=== PATIENT | female | born 1985 | race Caucasian/White ===

== ENCOUNTER 2016-06-27 10:07 | Day surgery (SDC) | payer OTHER ==
--- NOTE | ~2016-06-27 | EGD ---
EGD REPORT [facility] [address] [place] [address] NAME: NANCY SCHULTZ : [birth year] STATUS : REG [facility]#: [id number] AGE: 31 ADM/REG DATE : 06/27/16 MR#: [id number] REPORT SERV DATE: 06/27/16 DICTATED BY: LUKE ALDANA DATE: 06/27/16 REPORT STATUS : Draft TRANSCRIBED BY: [facility] DATE: 06/27/16 Pulmonology Patient Name: Nancy Schultz Procedure Date: 06/27/2016 3:16 PM Date of : 1985 Attending MD: JESSICA ALDANA MD Procedure Date No Time: 06/27/2016 Procedure: Bronchoscopy Indications: KAMILAH and LLL infiltrates. Providers: JESSICA ALDANA MD Referring MD: NORIS ROMAN MD Medicines: Lidocaine 2% 20 mL Complications: No immediate complications Procedure: Pre-Anesthesia Assessment: - A History and Physical has been performed. Patient meds and allergies have been reviewed. The risks and benefits of the procedure and the sedation options and risks were discussed with the patient. All questions were answered and informed consent was obtained. Patient identification and proposed procedure were verified prior to the procedure by the physician and the nurse in the pre-procedure area in the procedure room. Mental Status Examination: alert and oriented. Airway Examination: normal oropharyngeal airway. Respiratory Examination: poor air movement. CV Examination: normal and RRR, no murmurs, no S3 or S4. ASA Grade Assessment: III - A patient with severe systemic disease. After reviewing the risks and benefits, the patient was deemed in satisfactory condition to undergo the procedure. The anesthesia plan was to use general anesthesia. Immediately prior to administration of medications, the patient was re-assessed for adequacy to receive sedatives. The heart rate, respiratory rate, oxygen saturations, blood pressure, adequacy of pulmonary ventilation, and response to care were monitored throughout the procedure. The physical status of the patient was re-assessed after the procedure. After obtaining informed consent, the Bronchoscope was introduced through the mouth, via the endotracheal tube (the patient was intubated for the procedure) and advanced to the tracheobronchial tree. The procedure was accomplished without difficulty. The patient tolerated the procedure well. Findings: The endotracheal tube is in good position. The visualized portion of the EGD REPORT [address] [place]. [address] NAME: NANCY SCHULTZ : [birth year] STATUS : REG [facility] PAT#: [id number] AGE: 31 ADM/REG DATE : 06/27/16 MR#: [id number] REPORT SERV DATE: 06/27/16 DICTATED BY: LUKE ALDANA DATE: 06/27/16 REPORT STATUS : Draft TRANSCRIBED BY: [employer] DATE: 06/27/16 trachea is of normal caliber. The jagdeep is sharp. The tracheobronchial tree was examined to at least the first subsegmental level. Bronchial mucosa and anatomy are normal; there are no endobronchial lesions, and no secretions. Bronchoalveolar lavage was performed in the left upper lobe of the lung and sent for cell count, cytology, bacterial culture, viral smears \T\ culture, and fungal and AFB analysis. 120 mL of fluid were instilled. 50 mL were returned. The return was cellular. Fluoroscopically guided transbronchial brushings were obtained in the left upper lobe of the lung and sent for routine cytology, unspecified microbiology analysis and bacterial, AFB and fungal analysis. Two samples were obtained. Transbronchial biopsies were performed in the left upper lobe, in the lingula and in the left lower lobe of the lung using forceps and sent for histopathology examination. The procedure was guided by fluoroscopy. Six biopsy passes were performed. Five biopsy samples were obtained. Impression: - The examination was normal. No evidence of heme or an endobronchial tumor. - Bronchoalveolar lavage was performed. - Fluoroscopically guided transbronchial brushings were obtained. - Transbronchial lung biopsies were performed. Recommendation: - Await test results. - Chest X-ray. - Follow up with referring physician. Patient instructed to call Dr. Roman's office. Attending Participation: I personally performed the entire procedure. JESSICA ALDANA MD 06/27/2016 3:44 PM This report has been signed electronically. Number of Addenda: 0 Note Initiated On: 06/27/2016 3:16 PM [address] [place] [id number]
[~2016-06-27 10:07] MED LIST: ALBUTEROL0.63 MG/3 INH; GAVISCO2 PO; IBU600 PO; NEUR300 PO; NEXIUM40 PO; PROAIR HFA INH
[2016-06-27 10:20] LABS: BASOPHILS 0.6 %; BASOPHILS ABSOLUTE 0.05 10/3/uL (0.0-0.16); EOSINOPHILS 3.8 %; EOSINOPHILS ABSOLUTE 0.32 10/3/uL (0.0-0.53); HEMATOCRIT 38.3 % (36.0-48.0); HEMOGLOBIN 12.9 g/dL (12.0-16.0); IMMATURE GRANULOCYTES 0.1 %; IMMATURE GRANULOCYTES ABSOLUTE 0.01 10/3/uL (0.0-0.11); LYMPHOCYTES 35.6 %; LYMPHOCYTES ABSOLUTE 3.01 10/3/uL (0.67-4.30); MEAN CORPUS HGB CONC 33.7 g/dL (32.0-36.0); MEAN CORPUSCULAR HEMOGLOB 28.7 pg (26.0-34.0); MEAN CORPUSCULAR VOLUME 85.1 fL (80-100); MEAN PLATELET VOLUME 8.6 fL (9.2-13.0); MONOCYTES 6.1 %; MONOCYTES ABSOLUTE 0.52 10/3/uL (0.21-1.20); NEUTROPHILS 53.8 %; NEUTROPHILS ABSOLUTE 4.55 10/3/uL (2.02-8.40); PLATELET COUNT 267 10/3/uL (150-400); WHITE BLOOD CELLS 8.5 10/3/uL (4.5-10.5)
[2016-06-27 10:22] LABS: MANUAL DIFF NO %
[2016-06-27 10:26] LABS: INTERNATIONAL NORMAL RATI 1.1 UNITS (-); PARTIAL THROMBO TIME 34.3 SEC (22.5-37.2); PROTIME (NOT ORD) 13.9 SEC (12.0-14.5)
[2016-06-27 18:10] LABS: BD FL LYMPH (NOT ORD) 2 %; BD FL SOURCE (NOT ORD) BAL; BF BASO (NOT OF) 0 %; BF LARGE MONONUCLEAR 78 %; BF TOTAL CELL CT (NOT ORD 512 /MM3; BODY FLUID EOS (NOT ORD) 8 %; BODY FLUID RBC (NOT ORD) 1000 /MM3; BODY FLUID SEG (NOT ORD) 12 %
== END 2016-06-27 17:33 | disposition home or self-care (01) ==
LOC: DMU 10:07
PROVIDERS: Internal Medicine
PROC: 0B988ZX Drainage of Left Upper Lobe Bronchus, Via Natural or Artificial Opening Endoscopic, Diagnostic (ICD-10-PCS; principal; 2016-06-27 11:30)
PROC: 0BBJ8ZX Excision of Left Lower Lung Lobe, Via Natural or Artificial Opening Endoscopic, Diagnostic (ICD-10-PCS; 2016-06-27 11:30)
PROC: 0BBG8ZX Excision of Left Upper Lung Lobe, Via Natural or Artificial Opening Endoscopic, Diagnostic (ICD-10-PCS; 2016-06-27 11:30)
PROC: 0BB88ZX Excision of Left Upper Lobe Bronchus, Via Natural or Artificial Opening Endoscopic, Diagnostic (ICD-10-PCS; 2016-06-27 11:30)
DX: R91.8 Other nonspecific abnormal finding of lung field (principal); J44.9 Chronic obstructive pulmonary disease, unspecified; J45.909 Unspecified asthma, uncomplicated; D64.9 Anemia, unspecified; F41.9 Anxiety disorder, unspecified; M19.90 Unspecified osteoarthritis, unspecified site; F32.9 Major depressive disorder, single episode, unspecified; K21.9 Gastro-esophageal reflux disease without esophagitis; E78.00 Pure hypercholesterolemia, unspecified; G47.33 Obstructive sleep apnea (adult) (pediatric); F17.210 Nicotine dependence, cigarettes, uncomplicated; E66.9 Obesity, unspecified; G43.909 Migraine, unspecified, not intractable, without status migrainosus; Z79.899 Other long term (current) drug therapy; Z90.710 Acquired absence of both cervix and uterus; Z98.51 Tubal ligation status; Z98.890 Other specified postprocedural states; Z90.722 Acquired absence of ovaries, bilateral; Z82.61 Family history of arthritis; Z83.3 Family history of diabetes mellitus; Z68.41 Body mass index [BMI] 40.0-44.9, adult
CPT/HCPCS: 71010; 85025; 85610; 85730; 87015; 87070; 87102; 87116; 87205; 88112; 88305; 89051; A9270-GY; J2250; J2405; J2710; J3010